=== PATIENT | female | born 1990 | race Caucasian/White ===

== ENCOUNTER 2020-07-27 19:55 | Emergency (ER) | payer OTHER ==
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
[2020-07-27 22:16] LABS: HCG UR QUAL NEGATIVE
[2020-07-27] MEDS ORDERED: LORazepam 0.5 MG TABLET PO STA (22:40)
[2020-07-27 22:50] VITALS: BP 145/81
== END 2020-07-27 22:50 | disposition home or self-care (01) ==
LOC: ED 19:55
DX: F41.9 Anxiety disorder, unspecified (principal)
CPT/HCPCS: 81025; 99281; 99283; A9270